=== PATIENT | male | born 1990 | race Caucasian/White ===

== ENCOUNTER 2017-02-12 13:26 | Emergency (ER) | payer MEDICAID ==
[~2017-02-12] VITALS: Ht 180.3 cm; Wt 94.3 kg
[2017-02-12 13:40] VITALS: BP 81/53
[2017-02-12] MEDS ORDERED: ONDANSETRON 4 MG ODT PO ONE (13:55)
[2017-02-12] MEDS ORDERED: NACL 0.9% 1,000 ML IV ONE (14:30)
[2017-02-12] MEDS ORDERED: MORPHINE SULFATE 5 MG/ML VIAL IVP ONE (14:30)
[2017-02-12 14:53] LABS: BASOPHILS # (AUTO) 0.2 K/uL (0.00-0.22); EOSINOPHILS # (AUTO) 0.2 K/uL (0-0.4); HEMATOCRIT 47.2 % (36-52); HEMOGLOBIN 15.6 g/dL (12.0-18.0); LYMPHOCYTES # (AUTO) 1.1 K/uL (2.0-11.5); MEAN CORPUSCULAR HEMOGLOBIN 29 pg (27-31); MEAN CORPUSCULAR HGB CONC 33 g/dL (33-37); MEAN CORPUSCULAR VOLUME 88 fL (80-94); NEUTROPHILS # (AUTO) 6.6 K/uL (1.8-7.7); PLATELET COUNT (AUTO) 278 K/uL (140-450); RED BLOOD CELL COUNT(AUTO) 5.35 MIL/uL (4.20-6.10); RED CELL DISTRIBUTION WIDTH 12.7 % (11.6-13.7); WHITE BLOOD COUNT (AUTO) 9.1 K/uL (4.8-10.8)
[2017-02-12 15:01] LABS: ANION GAP 12.1 (8-16); CALCIUM 8.3 mg/dL (8.5-10.1); CARBON DIOXIDE 26.5 mmol/L (21-32); POTASSIUM 4.6 mmol/L (3.5-5.1)
[2017-02-12 15:52] VITALS: BP 140/86
== END 2017-02-12 15:52 | disposition home or self-care (01) ==
LOC: MED 13:26
DX: A08.4 Viral intestinal infection, unspecified (principal)
CPT/HCPCS: 36415; 80048; 81002; 85025; 96361; 96374; 99284; J2270; J7030; S0119

== ENCOUNTER 2020-11-21 08:06 | Emergency (ER) | payer SELFPAY ==
[~2020-11-21] VITALS: Ht 180.3 cm; Wt 59.0 kg
[2020-11-21 08:11] VITALS: BP 155/83
--- NOTE | 2020-11-21 08:26 | NUR ---
DR. BESS EXAMINING PATIENT
--- NOTE | 2020-11-21 08:28 | NUR ---
9779--PT AMBULATED TO BED
[2020-11-21] MEDS ORDERED: NAPR-1704 PO (08:29)
[2020-11-21] MEDS ORDERED: AMOX500C25 PO (08:29)
[2020-11-21] MEDS ORDERED: ACET-8386 PO (08:29)
[2020-11-21] MEDS ORDERED: DEXAMETHASONE 10 MG/ML VIAL PO ONE (08:30)
[2020-11-21] MEDS ORDERED: KETOROLAC 30 MG/ML VIAL IM ONE (08:30)
--- NOTE | 2020-11-21 08:30 | NUR ---
30 Y/O MALE C/O SORE THROAT X3DAYS WITH SOB, SUBJECTIVE FEVER AT HOME, CHILLS, HEADACHE, FATIGUE, AND APPETITE CHANGES. PT STATES PAIN 05/01. DENIES PMH NKA
[2020-11-21 08:50] VITALS: BP 155/83
== END 2020-11-21 08:45 | disposition home or self-care (01) ==
LOC: MED 08:06
DX: J02.9 Acute pharyngitis, unspecified (principal); F12.90 Cannabis use, unspecified, uncomplicated; Z79.899 Other long term (current) drug therapy
CPT/HCPCS: 96372; 99283; J1100; J1885

== ENCOUNTER 2021-01-24 11:47 | Emergency (ER) | payer SELFPAY ==
[~2021-01-24] VITALS: Ht 180.3 cm; Wt 105.2 kg
[~2021-01-24 11:47] MED LIST: ACET-8386 PO; AMOX500C25 PO; NAPR-1704 PO
[2021-01-24 11:52] VITALS: BP 140/71
--- NOTE | 2021-01-24 11:58 | NUR ---
Patient ambulated to bed 8 with family. RN evaluating the patient at bedside.
--- NOTE | 2021-01-24 12:02 | NUR ---
30 Y/O MALE FROM HOME C/O RIGHT SIDED LOWER BACK PAIN X 2 DAYS. PT STATES HE DOVE INTO POOL AND HAD PAIN TO RIGHT SIDE OF BACK. DENIES URINARY SYMPTOMS. STATES 10/10 SHARP CONSTANT PAIN. ABLE TO AMBULATE WITH ASSISTANCE. SKIN WARM, DRY, INTACT. HAS NOT TAKEN MEDICATIONS FOR PAIN. AWAKE AND ALERT, POSITIONED FOR COMFORT. VSS MEDHX: DENIES
--- NOTE | 2021-01-24 12:09 | NUR ---
AMANDA Oneill is evaluating the patient at bedside.
[2021-01-24] MEDS ORDERED: NAPR-1704 PO (12:15)
[2021-01-24] MEDS ORDERED: KETOROLAC 30 MG/ML VIAL IM ONE (12:15)
[2021-01-24] MEDS ORDERED: CAPS1ADH5 TP (12:15)
[2021-01-24 12:27] VITALS: BP 140/71
--- NOTE | 2021-01-24 12:28 | NUR ---
Patient discharged with v/s stable. Written and verbal after care instructions given and explained. Patient alert, oriented and verbalized understanding of instructions. Ambulatory with steady gait. All questions addressed prior to discharge. ID band removed. Patient advised to follow up with PMD. Rx of NAPROXEN AND CAPSAICIN/MENTHOL PATCH given. Patient educated on indication of medication including possible reaction and side effects. Opportunity to ask questions provided and answered.
== END 2021-01-24 12:28 | disposition home or self-care (01) ==
LOC: MED 11:47
DX: S39.012A Strain of muscle, fascia and tendon of lower back, initial encounter (principal); Z79.899 Other long term (current) drug therapy; W16.012A Fall into swimming pool striking water surface causing other injury, initial encounter; Y93.89 Activity, other specified; Y92.89 Other specified places as the place of occurrence of the external cause; Y99.8 Other external cause status
CPT/HCPCS: 96372; 99283; J1885

== ENCOUNTER 2021-03-10 11:14 | Emergency (ER) | payer SELFPAY ==
[~2021-03-10] VITALS: Ht 180.3 cm; Wt 105.7 kg
[~2021-03-10 11:14] MED LIST changes: +CAPS1ADH5 TP
[2021-03-10 11:23] VITALS: BP 162/134
--- NOTE | 2021-03-10 13:13 | NUR ---
PT AMBULATED TO BED 8.
[2021-03-10] MEDS ORDERED: KETOROLAC 30 MG/ML VIAL IM ONE (13:20)
--- NOTE | 2021-03-10 13:23 | NUR ---
30/M presents to ED with c/o right hip pain radiating down right leg since Sunday. Patient denies injury or trauma, stating pain has been worsening, denies taking anything at home for pain. Patient states 7/10 throbbing pain, able to ambulate without assistance. No redness, swelling or warmth noted to leg.
[2021-03-10] MEDS ORDERED: CYCL-711 PO (13:44)
[2021-03-10] MEDS ORDERED: LID5T TP (13:44)
[2021-03-10] MEDS ORDERED: PRED20TA5 PO (13:44)
[2021-03-10] MEDS ORDERED: IBUP-2213 PO (13:44)
--- NOTE | 2021-03-10 13:55 | NUR ---
Patient discharged with v/s stable. Written and verbal after care instructions given and explained. Patient alert, oriented and verbalized understanding of instructions. Ambulatory with steady gait. All questions addressed prior to discharge. ID band removed. Patient advised to follow up with PMD. Rx of Flexeril, lidoderm patch and Deltasone given. Patient educated on indication of medication including possible reaction and side effects. Opportunity to ask questions provided and answered.
== END 2021-03-10 13:55 | disposition home or self-care (01) ==
LOC: MED 11:14
DX: M54.16 Radiculopathy, lumbar region (principal); M54.2 Cervicalgia; R03.0 Elevated blood-pressure reading, without diagnosis of hypertension; Z79.899 Other long term (current) drug therapy
CPT/HCPCS: 72100; 81002; 96372; 99283; J1885

== ENCOUNTER 2022-02-15 09:29 | Emergency (ER) | payer SELFPAY ==
[~2022-02-15] VITALS: Ht 180.3 cm; Wt 94.4 kg
[~2022-02-15 09:29] MED LIST changes: +CYCL-711 PO; +IBUP-2213 PO; +LID5T TP; +PRED20TA5 PO
[2022-02-15 09:44] VITALS: BP 108/71
--- NOTE | 2022-02-15 09:48 | NUR ---
PT AMBULATED TO BED 7.
--- NOTE | 2022-02-15 09:58 | NUR ---
31 Y/O M BIB SELF C/O OF SORE THROAT AND PAIN 8/ FOR 5 DAYS. PT TOOK MEDICINE FOR PAIN BUT DOES NOT REMEMBER WHAT HE TOOK. NKA OR PMH
--- NOTE | 2022-02-15 10:02 | NUR ---
31/M PRESENTS TO ED WITH C/O 8/10 SORE THROAT PAIN DESCRIBED "SCRATCHY" X5 DAYS. PATIENT DENIES FEVERS, CHILLS, N/V/D, COUGH, SOB. PATIENT ALSO REPORTING PENILE PAIN AND DISCHARGE INTERMITTENTLY X1 MONTH. PATIENT DENIES DYSURIA, HEMATURIA OR CONCERN OF STDS.
--- NOTE | 2022-02-15 10:20 | NUR ---
DR GUEVARA AT BEDSIDE.
--- NOTE | 2022-02-15 11:04 | NUR ---
THROAT CULTURE COLLECTED AND WALKED TO THE LAB.
--- NOTE | 2022-02-15 11:04 | NUR ---
STREP A SCREEN, RAPIT SWABED, URINE COLLECTED AND WALKED TO THE LAB.
[2022-02-15 11:24] LABS: APPEARANCE,URINE CLEAR (CLEAR); BILIRUBIN,URINE NEGATIVE (NEGATIVE); BLOOD, URINE NEGATIVE (NEGATIVE); COLOR,URINE YELLOW (YELLOW); LEUKOCYTE ESTERASE ,URINE NEGATIVE (NEGATIVE); NITRITE, URINE NEGATIVE (NEGATIVE); UGLUCOSE NEGATIVE (NEGATIVE)
[2022-02-15] MEDS ORDERED: CLOT1CRE90 TP (11:46)
[2022-02-15] MEDS ORDERED: BACI-352 TP (11:46)
[2022-02-15 11:58] VITALS: BP 118/75
--- NOTE | 2022-02-15 12:00 | NUR ---
Patient discharged with v/s stable. Written and verbal after care instructions given and explained. Patient alert, oriented and verbalized understanding of instructions. Ambulatory with steady gait. All questions addressed prior to discharge. ID band removed. Patient advised to follow up with PMD. Rx of NEOMYCIN MIMS/BACITRAC ZN/POLY, CLOTRIMAZOLE given. Opportunity to ask questions provided and answered.
--- NOTE | 2022-02-15 12:05 | NUR ---
The patient's care was reviewed and supervised by Asmita Eddy RN.
== END 2022-02-15 11:58 | disposition home or self-care (01) ==
LOC: MED 09:29
DX: N47.7 Other inflammatory diseases of prepuce (principal); F17.210 Nicotine dependence, cigarettes, uncomplicated; F14.90 Cocaine use, unspecified, uncomplicated; F15.90 Other stimulant use, unspecified, uncomplicated; F12.90 Cannabis use, unspecified, uncomplicated; Z72.89 Other problems related to lifestyle
CPT/HCPCS: 81003; 82948; 87081; 87491; 99283